=== PATIENT | female | born 1935 | race Caucasian/White ===

== ENCOUNTER 2016-11-29 08:24 | Outpatient (CLI) | payer MEDICARE ==
[2016-11-29 12:42] LABS: #Basophils 0.1 thou/uL (0.0-0.2); #Eosinphils 0.2 thou/uL (0.0-0.7); #Lymphocytes 2.1 thou/uL (1.20-3.40); #Monocytes 0.5 thou/uL (0.11-0.59); #Neutrophils 3.4 thou/uL (1.40-6.50); %Basophils 1.6 % (0.0-1.0); %Eosinophils 3.5 % (0.0-10.0); %Lymphocytes 33.3 % (21.0-51.0); %Monocytes 8.4 % (0.0-10.0); Hematocrit 42.4 % (36.0-47.0); Mean Platelet Volume 6.9 fL (7.4-10.4); Red Blood Cell (RBC) Count 4.74 mill/uL (4.20-5.40); White Blood Cell (WBC) Count 6.3 thou/uL (4.8-10.8)
[2016-11-29 12:44] LABS: ALT (SGPT) 21 U/L (0-55); AST (SGOT) 26 U/L (5-34); Alkaline Phosphatase 73 U/L (40-150); Anion Gap 16 mmol/L (10-20); BUN (Urea Nitrogen) 13 mg/dL (9.8-20.1); Bilirubin, Total 0.5 mg/dL (0.2-1.2); Calc. Creatinine Clearance 0 mL/min (70-130); Calcium 9.8 mg/dL (7.8-10.44); Carbon Dioxide 26 mmol/L (23-31); Chloride 100 mmol/L (98-107); Estimated GFR-MDRD 73; Globulin 3.1 g/dL (2.4-3.5); LDL Cholesterol, Calculated 127 mg/dL; Protein, Total 7.3 g/dL (5.8-8.1)
[2016-11-29 13:05] LABS: Bilirubin Negative (Negative); Blood, Urine Negative (Negative); Glucose, Urine (Dipstick) Negative (Negative); Ketone, Urine Negative (Negative); Nitrite Negative (Negative); Protein, Urine (Dipstick) Negative (Neg-Trace); Urobilinogen 0.2 mg/dL (0.2-1.0)
== END 2016-11-29 08:25 | disposition home or self-care (01) ==
LOC: NAVSJIPCSP 08:24
PROVIDERS: ATTEND Internal Medicine
DX: I11.9 Hypertensive heart disease without heart failure (principal); G25.81 Restless legs syndrome; R53.83 Other fatigue; Z79.899 Other long term (current) drug therapy
CPT/HCPCS: 36415; 80053; 80061; 81003; 82607; 85025

== ENCOUNTER 2017-04-10 08:27 | Outpatient (CLI) | payer MEDICARE ==
[2017-04-10 12:50] LABS: Hemoglobin A1c 6.8 % (4.0-6.0)
[2017-04-10 12:55] LABS: Cardiac Risk 4.7 (Less than 4.5); Cholesterol 177 mg/dl (< 200 Desired); Glucose 143 mg/dL (83-110); HDL Cholesterol 38 mg/dL (>60 Neg Risk); LDL Cholesterol, Calculated 117 mg/dL; Triglycerides 109 mg/dL (Less than 150)
== END 2017-04-10 08:28 ==
LOC: NAVSJIPCSP 08:27
PROVIDERS: ATTEND Internal Medicine
DX: R73.9 Hyperglycemia, unspecified (principal); Z79.899 Other long term (current) drug therapy
CPT/HCPCS: 36415; 80061; 82947; 83036

== ENCOUNTER 2023-08-29 09:38 | Emergency (ER) | payer OTHER, MEDICARE ==
[2023-08-29] MEDS ORDERED: Acetaminophen 325 MG TAB ONE (10:24)
== END 2023-08-29 10:33 | disposition home or self-care (01) ==
LOC: NAV ERS 09:38
DX: S40.012A Contusion of left shoulder, initial encounter (principal); I10 Essential (primary) hypertension; W01.0XXA Fall on same level from slipping, tripping and stumbling without subsequent striking against object, initial encounter; Y93.01 Activity, walking, marching and hiking; Y92.481 Parking lot as the place of occurrence of the external cause; Z79.899 Other long term (current) drug therapy

== ENCOUNTER 2024-04-02 14:44 | Outpatient (CLI) | payer OTHER, MEDICARE | END 2024-04-02 14:45 | disposition home or self-care (01) | LOC: NAV RAD 14:44 | PROVIDERS: ATTEND Nurse Practitioner Family | DX: R06.02 Shortness of breath (principal) | CPT/HCPCS: 71046 ==

== ENCOUNTER 2024-04-13 21:04 | Emergency (ER) | payer OTHER, MEDICARE ==
[2024-04-13] MEDS ORDERED: NOREPINEPHRINE 8 MG/250 ML-D5W 250 ML ONE (21:27)
[2024-04-13 21:35] LABS: ALT (SGPT) 351 U/L (8-55); AST (SGOT) 373 U/L (5-34); Albumin 2.4 g/dL (3.4-4.8); Alkaline Phosphatase 47 U/L (40-110); Anion Gap 30 mmol/L (10-20); BUN (Urea Nitrogen) 59 mg/dL (9.8-20.1); Bilirubin, Total 0.8 mg/dL (0.2-1.2); Calc. Creatinine Clearance 0 mL/min (70-130); Carbon Dioxide 10 mmol/L (23-31); Chloride 104 mmol/L (98-107); Estimated GFR 27; Globulin 2.4 g/dL (2.4-3.5); Potassium 4.6 mmol/L (3.5-5.1); Protein, Total 4.8 g/dL (5.8-8.1); Sodium 139 mmol/L (136-145)
[2024-04-13 21:41] LABS: Hematocrit 36.1 % (36.0-47.0); Hemoglobin 11.1 g/dL (12.0-16.0); Lymphocytes 47 % (21-51); MDiff Complete? YES; Mean Corpuscular HGB CONC 30.7 g/dL (32.0-36.0); Mean Corpuscular Hemoglobin 28.9 pg (27.0-31.0); Mean Corpuscular Volume 94.1 fl (78.0-98.0); Mean Platelet Volume 9.1 fL (7.4-10.4); Monocytes 4 % (0-10); Neutrophil 49 % (42-75); Platelet Adequacy Comment Appears Decreased; Platelet Count 91 10x3/uL (130-400); RBC Distribution Width 13.8 % (11.5-14.5); Red Blood Cell (RBC) Count 3.84 mill/uL (4.20-5.40); White Blood Cell (WBC) Count 16.6 10x3/uL (4.8-10.8)
[2024-04-13 21:57] LABS: Glucose 547 mg/dL (83-110); Troponin I 0.263 ng/mL (< 0.028)
== END 2024-04-13 21:29 | disposition expired ==
LOC: NAV ERS 21:04
DX: I46.9 Cardiac arrest, cause unspecified (principal); I10 Essential (primary) hypertension
CPT/HCPCS: 36415; 36416; 80053; 84484; 85025; 99285